=== PATIENT | male | born 1965 | race Hispanic/Latino ===

== ENCOUNTER 2018-05-08 12:35 | Emergency (ER) | payer OTHER ==
[2018-05-08 12:36] VITALS: BMI 20.9
[2018-05-08 12:46] VITALS: RESP 18
[2018-05-08] MEDS ORDERED: Albuterol-Ipratrop 3 mg / 0.5 (3 ml) UD IH STA (13:20)
--- NOTE | 2018-05-08 13:36 | ED PDOC ---
Arrival/HPI - History of Present Illness Narrative History of Present Illness (Text): 05/08/18 13:30 Pt is a 52 yo M with pmhx of GERD and Asthma, who presents to ED for 1 wk hx of cough. He states that he attempted to take nyquil and advil for subjective fevers. He states that they would improve his symptoms a little, but they would always return. He admits that the cough is productive of yellow sputum. He admits to fevers, chills and weakness but denies body aches. He admits to a sore throat, productive cough with yellow sputum, chest pain only with coughing, chronic abdominal pain, diarrhea and post-tussive emesis. Pmhx: GERD, Asthma Pshx: Endoscopy Meds: Ranitidine All: ASA Social: Denies any tobacco hx, social etOH use and denies illicit drug use Fam Hx: Mom and Dad- Lung ca Time/Duration: 1 week Symptom Onset: Gradual Symptom Course: Unchanged <Rashid Tony - Last Filed: 05/08/18 14:10> <Pat Angelo - Last Filed: 05/08/18 14:16> - General Time Seen by Provider: 05/08/18 12:44 Past Medical History - Provider Review Nursing Documentation Reviewed: Yes - Infectious Disease Hx of Infectious Diseases: None - Tetanus Immunization Tetanus Immunization: Up to Date - Cardiac Hx Cardiac Disorders: No - Pulmonary Hx Respiratory Disorders: Yes Hx Asthma: Yes - Neurological Hx Neurological Disorder: No - HEENT Hx HEENT Disorder: No - Endocrine/Metabolic Hx Endocrine Disorders: No - Hematological/Oncological Hx Blood Disorders: No - Integumentary Hx Dermatological Disorder: No - Musculoskeletal/Rheumatological Hx Musculoskeletal Disorders: No - Gastrointestinal Hx Gastrointestinal Disorders: Yes Hx Gastroesophageal Reflux: Yes - Genitourinary/Gynecological Hx Genitourinary Disorders: No - Psychiatric Hx Psychophysiologic Disorder: No Hx Substance Use: No - Surgical History Hx Orthopedic Surgery: Yes (left knee reconstruction) Other/Comment: ENDOSCOPY - Anesthesia Hx Anesthesia: Yes Hx Anesthesia Reactions: No Hx Malignant Hyperthermia: No - Suicidal Assessment Feels Threatened In Home Enviroment: No <Rashid Tony - Last Filed: 05/08/18 14:10> Family/Social History - Physician Review Nursing Documentation Reviewed: Yes Family/Social History: Neoplasm/Cancer Smoking Status: Never Smoked Hx Alcohol Use: No Hx Substance Use: No Hx Substance Use Treatment: No <Rashid oTny - Last Filed: 05/08/18 14:10> Allergies/Home Meds <Rashid Tony - Last Filed: 05/08/18 14:10> <Pat Angelo - Last Filed: 05/08/18 14:16> Allergies/Adverse Reactions: Allergies aspirin Allergy (Verified 05/08/18 12:41) RASH Home Medications: Home Meds Medication Instructions Recorded Confirmed Ranitidine HCl [Zantac] 150 mg PO DAILY 05/08/18 05/08/18 Review of Systems - Review of Systems Constitutional: Fevers, Night Sweats Respiratory: Cough Cardiovascular: Chest Pain (with coughing). absent: Palpitations, Edema Gastrointestinal: Abdominal Pain (chronic), Nausea, Vomiting Genitourinary Male: absent: Dysuria <Rashid Tony - Last Filed: 05/08/18 14:10> Physical Exam Vital Signs Reviewed: Yes Vital Signs Temp Pulse Resp BP Pulse Ox 05/08/18 12:42 98.3 F 94 H 18 122/78 95 Temperature: Afebrile Blood Pressure: Normal Pulse: Regular Respiratory Rate: Normal Appearance: Positive for: Well-Appearing, Non-Toxic, Comfortable Pain Distress: None Mental Status: Positive for: Alert and Oriented X 3 - Systems Exam Head: Present: Atraumatic, Normocephalic Pupils: Present: PERRL Extroacular Muscles: Present: EOMI Respiratory/Chest: Present: Clear to Auscultation, Decreased Breath Sounds. No: Respiratory Distress, Accessory Muscle Use, Wheezes, Rales, Rhonchi Cardiovascular: Present: Regular Rate and Rhythm, Normal S1, S2. No: Murmurs, Rub, Gallop Abdomen: Present: Tenderness, Normal Bowel Sounds. No: Distention, Peritoneal Signs, Rebound, Guarding, McBurney's Point Tender, Rovsing's Sign Present Lower Extremity: Present: Normal Inspection, Neurovascularly Intact. No: Edema, CALF TENDERNESS, Angle's Sign Neurological: Present: GCS=15, Speech Normal Skin: Present: Warm, Dry, Normal Color. No: Rashes Psychiatric: Present: Alert, Oriented x 3, Normal Insight, Normal Concentration, Normal Affect, Normal Mood <Rashid Tony - Last Filed: 05/08/18 14:10> Vital Signs Temp Pulse Resp BP Pulse Ox 05/08/18 12:42 98.3 F 94 H 18 122/78 95 <Pat Angelo - Last Filed: 05/08/18 14:16> Medical Decision Making ED Course and Treatment: 05/08/18 13:39 Pt is a 52 yo M with pmhx detailed above who presents for a 1 wk hx of cough productive of yellow sputum. Lungs sound clear on exam with no rales, rhonchi or wheezes. Pt is afebrile. - CXR - Rapid flu (pt is outside the tx window since sxs present for 1 wk) - Nebulizer tx - Benzonatate - RAD Interpretation Radiology Orders: 05/08/18 13:16 CHEST TWO VIEWS (PA/LAT) [RAD] Stat - Medication Orders Current Medication Orders: Discontinued Medications Albuterol/Ipratropium (Duoneb 3 Mg/0.5 Mg (3 Ml) Ud) 3 ml IH STAT STA Stop: 05/08/18 13:21 Benzonatate (Tessalon Perles) 100 mg PO STAT STA Stop: 05/08/18 13:18 <Rashid Tony - Last Filed: 05/08/18 14:10> ED Course and Treatment: 05/08/18 13:59 52 year old male presents to the Emergency Department complaining of productive cough. In agreement with resident note, which includes further HPI details. Patient was seen and evaluated with resident, came up with plan and treatment together. Patient complaining of subjective fever and cough. Cxray negative for pneumonia. Lungs cta b/l. Flu negative. Patient is well appearing and presentation consistent with viral uri. - RAD Interpretation Radiology Orders: 05/08/18 13:16 CHEST TWO VIEWS (PA/LAT) [RAD] Stat - Medication Orders Current Medication Orders: Discontinued Medications Albuterol/Ipratropium (Duoneb 3 Mg/0.5 Mg (3 Ml) Ud) 3 ml IH STAT STA Stop: 05/08/18 13:21 Last Admin: 05/08/18 13:43 Dose: 3 ml Benzonatate (Tessalon Perles) 100 mg PO STAT STA Stop: 05/08/18 13:18 Last Admin: 05/08/18 13:43 Dose: 100 mg <GiPat A - Last Filed: 05/08/18 14:16> - PA / SHOE CLERK / Resident Statement / has reviewed & agrees with the documentation as recorded. / has examined the patient and agrees with the treatment plan. - Scribe Statement The provider has reviewed the documentation as recorded by the Scribe Nay Multani. All medical record entries made by the Scribe were at my direction and personally dictated by me. I have reviewed the chart and agree that the record accurately reflects my personal performance of the history, physical exam, medical decision making, and the department course for this patient. I have also personally directed, reviewed, and agree with the discharge instructions and d isposition. <Pat Angelo Inna - Last Filed: 05/08/18 14:16> Disposition/Present on Arrival - Present on Arrival History of DVT/PE: No History of Uncontrolled Diabetes: No Urinary Catheter: No History of Decub. Ulcer: No History Surgical Site Infection Following: None <Rashid Tony - Last Filed: 05/08/18 14:10> - Present on Arrival Any Indicators Present on Arrival: No - Disposition Have Diagnosis and Disposition been Completed?: Yes Disposition Time: 14:05 Patient Plan: Discharge <KseniavikyPat A - Last Filed: 05/08/18 14:16> - Disposition Diagnosis: Viral URI with cough Disposition: HOME/ ROUTINE Patient Problems: Current Active Problems Problem Status Onset Viral URI with cough Acute Condition: GOOD Discharge Instructions (ExitCare): Viral Upper Respiratory Infection, Adult (DC) Additional Instructions: Follow-up with PMD within 2 days. Return to ED if condition worsens. Take medication for cough. Use albuterol as needed Prescriptions: Albuterol HFA [Ventolin HFA 90 mcg/actuation (8 g)] 2 puff IH [id number] #1 puff Albuterol 0.083% [Albuterol 0.083% Inhal Ellen (2.5 mg/3 ml) UD] 2.5 mg IH Q6 #100 neb Benzonatate [Tessalon Perles] 100 mg PO TID PRN #30 sgl PRN Reason: Cough Referrals: Dedousis,Mihir, MD [Primary Care Provider] - Follow up with primary
--- NOTE | 2018-05-08 13:49 | RAD ---
Date of service: 05/08/2018 HISTORY: productive cough COMPARISON: 01/06/2014 TECHNIQUE: Chest PA and lateral FINDINGS: LUNGS: Mild peribronchial thickening. No evidence of pneumonia PLEURA: No significant pleural effusion identified. No pneumothorax apparent. CARDIOVASCULAR: Normal. OSSEOUS STRUCTURES: No significant abnormalities. VISUALIZED UPPER ABDOMEN: Normal. OTHER FINDINGS: None. IMPRESSION: Mild peribronchial thickening. No evidence of pneumonia
[2018-05-08 14:15] VITALS: BP 122/77; PULSE 81; TEMP 98.6; O2SAT 97
--- NOTE | 2018-05-09 06:35 | CARD ---
APPROVED REPORT Date of service: 05/08/2018 EKG Measurement Heart [id number] <Conclusion> Normal sinus rhythm Septal infarct, age undetermined Abnormal ECG
== END 2018-05-08 14:14 | disposition home or self-care (01) ==
LOC: ED 12:35
DX: J06.9 Acute upper respiratory infection, unspecified (principal); R05 Cough